=== PATIENT | male | born 1985 | race Caucasian/White ===

== ENCOUNTER 2025-02-11 08:15 | Outpatient (AMB) | payer OTHER, SELFPAY ==
--- NOTE | 2025-02-11 08:17 | MHC.PC.OV ---
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 Overweight: The patient reports a lifelong struggle with her weight. Over the past month, she has been dieting and has lost approximately 15 pounds. For exercise, she walks frequently at work and has recently purchased a treadmill with her sister to begin using. Chronic Left Shoulder Pain: The patient reports left shoulder pain starting after a fall nearly a year ago, around Brian of last year. She slipped and jerked her arm while holding onto a railing. This resulted in a limited range of motion, specifically with lifting the arm overhead. She describes the pain as a 4 out of 10 and notes it has improved over time; she is now able to bend her arm and scratch her back, actions she could not perform previously. She denies any associated tingling down the arm. She has intermittently used Aleve for the pain but has not undergone physical therapy. Dysmenorrhea and Menorrhagia: The patient reports a history of painful, long, and heavy menstrual periods. She takes an oral contraceptive pill for control to manage these symptoms. She denies ever being told she has anemia. Her menarche was at age 17. Health Maintenance: The patient's last Pap smear was performed when she was 19 years old. She has no family history of breast cancer. Her last visit with a physician for lab work was a very, very long time ago. Surgical History: - No prior surgical history reported. Medications: - Oral contraceptive pill ( Opel ): Taken for management of painful and heavy menstruation. Social History: - Tobacco Use: Patient is a former smoker, having quit 3 years ago. - She smoked for 10 years, consuming about half a pack of cigarettes per day, and sometimes more when drinking alcohol. - Substance Use: Denies use of marijuana or any hard drugs. - Sexual History: Not sexually active. - Employment: Works at the [employer] in [place]. - Housing and Social Support: Lives with her mother in [place], although her mother is currently away. - Her sister is also working on weight loss. - Exercise: Reports walking a lot at work and plans to start using a recently purchased treadmill. Family History: - Mother: Overweight. - Breast Cancer: Denies any immediate family history of breast cancer. Past Medical History - Dysmenorrhea and menorrhagia managed with an oral contraceptive pill. - Left shoulder injury secondary to a fall approximately one year prior. - Last Pap smear at age 19. - Has not seen a doctor or had lab work in a very long time. Health Maintenance - Cervical Cancer Screening: Patient is 39 and last had a Pap smear at age 19. - She was advised she is due for a Pap smear, which should be done every five years with HPV co-testing. - Breast Cancer Screening: Mammogram is not yet indicated as patient is 39 with no family history of breast cancer. - Sexually Transmitted Infection Screening: Patient declined screening for chlamydia, gonorrhea, and syphilis, as she is not sexually active. - Diet and Exercise: Patient is actively dieting and plans to increase exercise by using a new treadmill. [facility] Medical History (Updated 02/11/25 @ 08:55 by Armani Mckinnon MD) Morbidly obese Chronic left shoulder pain Family History Mother Hemochromatosis Acute arthritis Father Multiple sclerosis Social History (Reviewed 02/11/25 @ 08:25 by Mimi Patel [facility]) Housing: House Patient Tobacco Use Status: Former Tobacco user service: No Current occupational status: employed Cognitive needs: No Hearing needs: No Vision needs: Yes (rx glasses) Questionnaire PHQ-9 Over the last 2 weeks, how often have you been bothered by any of the following problems? 1. Little interest or pleasure in doing things: not at all 2. Feeling down, depressed, or hopeless: not at all 3. Trouble falling or staying asleep, or sleeping too much: not at all 4. Feeling tired or having little energy: not at all 5. Poor appetite or overeating: not at all 6. Feeling bad about yourself - or that you are a failure or have let yourself or your family down: several days 7. Trouble concentrating on things, such as reading the newspaper or watching television: not at all 8. Moving or speaking so slowly that other people could have noticed. Or the opposite - being so fidgety or restless that you have been moving around a lot more than usual: not at all 9. Thoughts that you would be better off or of hurting yourself in some way: not at all Total score: 1 Depression Screening Interpretation: Negative Depression Screening Done: Yes Source: Developed by Drs. Preet Mcclellan, Sonia Blanca, Jered Gray and colleagues, with an educational ilan from [employer]. Thrive Questionnaire Date Thrive assessed: 02/04/25 I am a: Patient What is your living situation today?: I have a steady place to live Within the past 12 months, did the food you bought not last and you didn't have the money to get more?: Never true Within the past 12 months, did you worry whether your food would run out before you got money to buy more?: Never true Do you have trouble paying for medicines?: No Do you have trouble getting transportation to medical appointments?: No Do you have trouble paying your heating and electricity bill?: No Do you have trouble taking care of your child, family member or friend?: No Do you have trouble with day-to-day activities such as bathing, preparing meals, shopping, managing finances, etc.?: No Are you currently unemployed and looking for a job?: No Are you interested in more education?: Yes Please select the resources that you would like help with: None Currently or been in a relationship where the following occur: No concerns reported THRIVE Score: 0 AUDIT C Alcohol Use Questionnaire (AUDIT-C) 1. How often do you have a drink containing alcohol?: Monthly or less 2. How many drinks containing alcohol do you have on a typical day when you are drinking?: 1 or 2 3. How often do you have six or more drinks on one occasion?: Less than monthly Total Score: 2 LAUREN-7 AMB Questionnaire LAUREN-7 Date LAUREN - 7 assessed: 10/29/25 Feeling nervous, anxious, or on edge: 1 = Several days Not being able to stop or control worryin = Not at all Worrying too much about different things: 1 = Several days Trouble relaxin = Not at all Being so restless that it is hard to sit still: 0 = Not at all Becoming easily annoyed or irritable: 0 = Not at all Feeling afraid as if something awful might happen: 0 = Not at all Total LAUREN-7 score (0-4 normal; 5-9 mild; 10-14 moderate; 15-21 severe): 2 Source: Developed by Drs. Preet Mcclellan, Sonia Blanca, Jered Gray and colleagues, with an educational ilan from [employer]. Review of Systems Narrative Review of Systems - Constitutional: Reports lifelong difficulty with weight and is seeking weight loss. - Musculoskeletal: Reports chronic left shoulder pain with limited range of motion for almost one year. - Reports swelling of the left foot and ankle. - Neurological: Denies tingling down the left arm. - Genitourinary: Reports painful, long, and heavy menses. - Gastrointestinal: Denies recent constipation. 10-point ROS reviewed and negative except as noted in HPI Physical exam (Primary Care) Vital Signs: Last Vital Signs Temp 98.3 F 02/11/25 08:23 Pulse 75 02/11/25 08:23 BP 138/86 02/11/25 08:23 Pulse Ox 100 02/11/25 08:23 Oxygen Delivery Method Room Air 02/11/25 08:23 BMI result Body Mass Index 44.8 Tobacco/Smoking Status: Tobacco use Status Tobacco use date assessed 02/11/25 02/11/25 08:19 Patient Tobacco Use Status Former Tobacco user 02/11/25 08:26 PHQ-9: PHQ-9 Score PHQ-9: Total score 1 02/11/25 08:23 Depression Screening Interpretation: Negative Thrive Assessment: Date of Thrive Assessment Date Thrive assessed 02/04/25 02/11/25 08:19 Currently or been in a relationship where the following occur: No concerns reported Narrative Physical Exam General: Well-appearing, in no acute distress. Vital signs: Blood pressure is a little high. HEENT: Normocephalic, atraumatic. PERRLA, EOMI. Conjunctiva clear, sclera anicteric. Oropharynx clear, mucous membranes moist. TMs intact bilaterally. Beautiful blue eyes with sunflower yellow around the iris. Neck: Supple, no lymphadenopathy, no thyromegaly, no JVD or carotid bruits. Cardiovascular: RRR, normal S1/S2, no murmurs, rubs, or gallops. Peripheral pulses 2+ and symmetric. No edema. Swelling noted in the left foot and ankle. Respiratory: Lungs clear to auscultation bilaterally, no wheezes, rales, or rhonchi. Normal effort. Abdomen: Soft, non-tender, non-distended. Normoactive bowel sounds. No hepatosplenomegaly, no masses. MSK: Limited range of motion in the left shoulder due to chronic pain. Pain rated 4/10. No joint swelling or deformity. Normal gait. Skin: Warm, dry, intact. No rashes or pallor. Presence of skin tags in the right armpit and darkening of the skin suggestive of insulin resistance. Neuro: Alert and oriented x3. Cranial nerves II-XII intact. Strength 5/5 throughout. Sensation intact. Reflexes 2+ symmetric. Normal coordination and gait. Psych: Appropriate mood and affect. Normal judgment and insight. Office Procedures Flu Questionnaire Does the patient have a severe egg allergy?: No Does the patient have severe life threatening allergies?: No Does the patient have a fever or illness today?: No Has the patient ever had Guillain-Madison Syndrome?: No Has the patient ever had any past reaction to a flu shot?: No Immunizations Fluarix [id number] (PF) 45 mcg (15 mcg x 3)/0.5 mL IM syringe Performing Provider: Armani Mckinnon MD Performing Location: [facility] [place] [facility] Administered by: Mimi Patel CMA on 02/11/25 08:47 Dose Route Admin Location Dispensed Lot Number Expiration Date [employer] 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 0.5 mL IM Left Deltoid 0.5 mL [id number] 10/13/25 03904-561-23 Attention Point VIS Given Date VIS Provided VIS Publication Date 02/11/25 Single Vaccine 24 Eligibility Eligibility Date Funding Source Not [facility] Eligible 02/11/25 Private Coding Level of Care Code New Pt Level 4 (12595) Diagnoses Chronic left shoulder pain M25.512; G89.29 Morbidly obese E66.01 Menorrhagia N92.0 Acanthosis nigricans L83 Insulin resistance E88.81 Assessment & Plan Assessment & Plan (1) Chronic left shoulder pain: Code(s): M25.512 - Pain in left shoulder; G89.29 - Other chronic pain Category: Medical (2) Morbidly obese: Code(s): E66.01 - Morbid (severe) obesity due to excess calories Category: Medical (3) Menorrhagia: Code(s): N92.0 - Excessive and frequent menstruation with regular cycle (4) Acanthosis nigricans: Code(s): L83 - Acanthosis nigricans (5) Insulin resistance: Code(s): E88.81 - Metabolic syndrome and other insulin resistance Plan Consent The plan for a comprehensive lab workup, referral to a medical weight management clinic, and referral to physical therapy was discussed with the patient. The patient understood the proposed plan and provided verbal consent, stating, Sounds good. Options for a Pap smear, including performing it in-office or referring to an OB-PRODUCT SAFETY COORDINATOR, were presented to the patient, who was advised to schedule based on her preference. Patient was informed and verbally consented to the use of an ambient scribe for clinic note documentation during this visit. Plan 1. Overweight - To establish a baseline and evaluate for underlying contributors to weight gain, a comprehensive lab panel will be ordered. - This includes a CBC, CMP, hemoglobin A1c, lipid panel, TSH, vitamin B12, folate, vitamin D, magnesium, and urine studies. - Infectious disease screening will be performed with HIV, hepatitis B, and hepatitis C tests. - A referral will be placed to the [facility]'s Medical Weight Management clinic for a comprehensive, multidisciplinary approach involving a relish maker and obesity specialist. - A follow-up visit is scheduled in two weeks to review lab results and continue the discussion on weight loss strategies. 2. Chronic Left Shoulder Pain - For pain management, the patient is advised to use ibuprofen as needed. - A referral will be placed for physical therapy for evaluation and treatment, to help with stretching and strengthening the muscles around the shoulder. 3. Preventative Care: Cervical Cancer Screening - The patient was informed that she is overdue for a Pap smear. - It was explained that screening is recommended every five years with HPV co-testing for her age group. - The patient was given the option to have the Pap smear performed in-office or to be referred to an OB-PRODUCT SAFETY COORDINATOR, based on her preference. - She was instructed to schedule a follow-up visit for the procedure. Discussion Notes I had a detailed discussion with the patient, [place], about her primary goal of weight loss. I explained the importance of obtaining baseline laboratory studies before considering any pharmacological interventions for weight loss, including checking for correctable causes like hypothyroidism or vitamin deficiencies. I recommended a comprehensive approach and discussed a referral to our medical weight management clinic, which she agreed to. We also addressed her chronic left shoulder pain, and I recommended as-needed ibuprofen and a referral to physical therapy to improve range of motion and strength, which she also found acceptable. Finally, I advised her that she is significantly overdue for a Pap smear and provided her with the options of having it done with me or with a referral to an OB-PRODUCT SAFETY COORDINATOR. I informed her that her blood pressure was slightly elevated but that we would monitor it, as it may be related to first-visit anxiety. I placed all necessary lab orders and referrals and instructed her to follow up in two weeks to review the results. Patient Instructions - Please go to the lab to have your blood drawn for the tests we discussed. - Our office will send a referral to the Medical Weight Management clinic, and they will contact you to schedule an appointment. - We will also send a referral for you to begin physical therapy for your left shoulder pain. - You may take an [id number] pain reliever like Ibuprofen as needed for shoulder pain. - Please call the office to schedule an appointment for a Pap smear, or let us know if you would prefer a referral to a professional development manager. - Schedule a follow-up appointment with me in two weeks to go over your lab results. Medical Decision Making The patient is a 39-year-old female new to the practice, presenting for weight management and chronic left shoulder pain. Given her long history of difficulty with weight and her interest in treatment, a thorough workup is warranted to rule out underlying metabolic or endocrine causes such as hypothyroidism or vitamin deficiencies before considering pharmacotherapy. Physical exam findings of acanthosis nigricans and skin tags are suggestive of insulin resistance, further justifying a comprehensive metabolic panel and hemoglobin A1c. A referral to a multidisciplinary medical weight management program is the most appropriate next step to provide structured support including nutrition and specialist consultation. Her chronic left shoulder pain, present for nearly a year post-injury with persistent limited range of motion, warrants conservative management initially with physical therapy to restore function; imaging may be considered if she does not improve. The patient is significantly overdue for cervical cancer screening, and providing her with options for completing the Pap smear empowers her to engage in her health maintenance. The mildly elevated blood pressure will be re-evaluated at the next visit to determine if it is a persistent issue or a transient finding. Total time spent caring for the patient today was 30 minutes. This includes time spent before the visit reviewing the chart, time spent documenting, and time spent reviewing laboratory results, diagnostic imaging, medications, performing a medically necessary evaluation, counseling on diagnoses, care coordination. Orders: Orders PT Evaluation and Treatment Today G89.29 - Other chronic pain, M25.512 - Pain in left shoulder, Z13.9 - Encounter for screening, unspecified Hemoglobin A1c Today Z13.9 - Encounter for screening, unspecified Hepatitis B Surface Antigen Today Z13.9 - Encounter for screening, unspecified Hepatitis C Antibody Today Z13.9 - Encounter for screening, unspecified Magnesium Today Z13.9 - Encounter for screening, unspecified TSH reflex Free T4 Today Z13.9 - Encounter for screening, unspecified Vitamin B12 and Folate Today Z13.9 - Encounter for screening, unspecified Vitamin D 1,25 dihydroxy Today Z13.9 - Encounter for screening, unspecified Influenza [id number] Immunization Today Z23 - Encounter for immunization Complete Blood Count Auto Diff Today Z13.9 - Encounter for screening, unspecified Comprehensive Met. Panel Today Z13.9 - Encounter for screening, unspecified Hepatitis B Surface Antibody Today Z13.9 - Encounter for screening, unspecified HIV Ab/Ag Today Z13.9 - Encounter for screening, unspecified Lipid Panel Today Z13.9 - Encounter for screening, unspecified UA CC w/rflx Micro + Cult Today Z13.9 - Encounter for screening, unspecified Referrals Medical Weight Management Referral E66.01 - Morbid (severe) obesity due to excess calories
[2025-02-11 08:23] VITALS: BP 138/86; PULSE 75; TEMP 36.8; O2SAT 100; BMI 44.8
== END 2025-02-11 09:03 | disposition home or self-care (01) ==
LOC: HO.HMCFMS 08:16
PROVIDERS: PCP Student in an Organized Health Care Education/Training Program; Visit Provider Student in an Organized Health Care Education/Training Program
DX: M25.512 Pain in left shoulder (principal); G89.29 Other chronic pain; E66.01 Morbid (severe) obesity due to excess calories; N92.0 Excessive and frequent menstruation with regular cycle; L83 Acanthosis nigricans; E88.810 Metabolic syndrome; Z23 Encounter for immunization

== ENCOUNTER 2025-02-11 08:15 | Outpatient (REF) | payer OTHER, SELFPAY ==
--- OUTSIDE RECORDS SUMMARY | 2025-02-11 10:26 | XMS_ITS | Encounter Summary ---
Author Organization [employer] Address [address] [place] [address] Care Team Providers Care Livestock Breeder Name Role Phone Unavailable Primary Care Provider Unavailabl e Encounter Details Date Type Department Care Team (Latest Contact Info) Description 12/21/2021 Abstract [facility] Dental, Provider, DDS Social History Tobacco Use Types Packs/Day Years Used Date Smoking Tobacco: Never Assessed Comments Unknown Sex and Gender Information Value Date Recorded Sex Assigned at Female 05/05/2022 3:45 PM EST Legal Sex Female 5:34 PM EDT Gender Identity Female 05/05/2022 3:45 PM EST Sexual Orientation Straight 05/25/2022 9: 09 AM EST documented as of this encounter Plan of Treatment Not on file documented as of this encounter Visit Diagnoses Not on filedocumented in this encounter
--- OUTSIDE RECORDS SUMMARY | 2025-02-11 10:26 | XMS_ITS ---
Author Name [facility] Organization Unknown Care Team Organization Name Specialty Phone Email Start Date End Da te [facility] Shani [facility] 02/21/20222023
--- OUTSIDE RECORDS SUMMARY | 2025-02-11 10:26 | XMS_ITS | Encounter Summary ---
Author Organization [employer] Address [address] [place] [address] [address], [place] [address] Care Team Providers Care Frozen Yogurt Maker Name Role Phone Unavailable Primary Care Provider Unavailabl e Reason for Visit * Reason Onset Date Comments Dental Pain 04/05/2022 See above. Encounter Details Date Type Department Care Team (Late st Contact Info) Description 04/05/2022 Telephone [facility] [address] [place] [address] Gonzalo Oneal DMD Dental Pain (See above.) Social History Tobacco Use Types Packs/Day Years [...]
--- OUTSIDE RECORDS SUMMARY | 2025-02-11 10:26 | XMS_ITS | Clinical Summary ---
Author Organization [employer] Address [address] [place] [address] [address] [place] [address] Care Team Providers Care Blank Driller Name Role Phone Unavailable Primary Care Provider Unavailabl e Social History Tobacco Use Types Packs/Day Years Used Date Smoking Tobacco: Never Assessed Comments Unknown Sex and Gender Information Value Date Recorded Sex Assigned at Female 05/05/2022 3:45 PM EST Legal Sex Female 5:34 PM EDT Gender Identity Female 05/05/2022 3:45 PM EST Sexual Orientation Straight 05/25/2022 9: 09 AM EST Last Filed Vital Signs Vital Sign Reading Time Taken Comments Blood Pressure - - Pulse - - Temperature 36.3 C (97.3 F) 05/30/2022 9:00 AM EST Respiratory Rate - - Oxygen Saturation - - Inhaled Oxygen Concentration - - Weight - - Height - - Body Mass Index - - Plan of Treatment Health Maintenance Due Date Last Done Comments Depression Screening 1986 HIV Screening 1986 SDOH Screening 1986 Disability Screening 1986 Alcohol/Substance Use Screening 1998 Tobacco Screening 1998 Family Planning (PISQ) 2001 HPV Vaccines (1 - 3-dose series) 2001 Hepatitis C Screening 2004 DTaP/Tdap/Td Vaccines (1 - Tdap) 2005 Hepatitis B Vaccines (1 of 3 - 19+ 3-dose series) 2005 Pap Smear 11/25/2007 Cervical Cancer Screening 2016 HPV/Cotest 2016 Dental Oral Exam 08/27/2017 02/26/2017, , 01/28/2016, Additional history exists Dental Prophylaxis 07/05/2022 01/04/2022, 1 04/28/2016, 08/01/2016, Additional history exists Dental X-Ray: Bitewings 12/22/2022 12/22/19 22, 02/26/2017, 01/28/2016, Additional history exists COVID-19 Vaccine (2024- season) 2024 04/14/2021, 09/20/2020, 08/23/2020 Influenza Vaccine (#1) 2024 Dental X-Ray: Full Mouth 12/22/2024 12/21/2021, 01/14 Zoster Vaccines (1 of 2) 2036 RSV Patients and Patients Aged 60 years or older (1 - 1-dose 75+ series) 2061 HIB Vaccines Aged Out No longer eligi ble based on patient's age to complete this topic Hepatitis A Vaccines Aged Out No long er eligible based on patient's age to complete this topic IPV Vaccines Aged Out No longer eligi ble based on patient's age to complete this topic Meningococcal B Vaccine Aged Out No l onger eligible based on patient's age to complete this topic Meningococcal Vaccine Aged Out No nisha polina eligible based on patient's age to complete this topic Pneumococcal Vaccine: Pediatrics (0 to 5 Years) and At-Risk Patients (6 to 49) Years Aged Out No longer eligible based on patient's age to complete this topic RSV under 20 months Aged Out No longe r eligible based on patient's age to complete this topic Rotavirus Vaccines Aged Out No longer eligible based on patient's age to complete this topic Procedures Procedure Name Priority Date/Time Associated Diagnosis Comments PROPHYLAXIS - ADULT Routine 01/04/2022 1 2:00 AM EDT INTRAORAL - COMPLETE SERIES OF RADIOGRAPHIC IMAGES Routine 12/21/2021 12:00 AM EDT PERIODIC ORAL EVALUATION - ESTABLISHED PATIENT Routine 02/26/2017 12:00 AM EST from Last 3 Months or Most Recently Relevant to Health Maintenance Insurance DENTAL - [facility] [address] [place] [id number]
--- OUTSIDE RECORDS SUMMARY | 2025-02-11 10:26 | XMS_ITS | Encounter Summary ---
Author Organization [employer] Address [address] [place] [address] Care Team Providers Care Electronic Musical Instrument Repairer Name Role Phone Unavailable Primary Care Provider Unavailabl e Encounter Details Date Type Department Care Team (Latest Contact Info) Description 01/04/2022 Abstract [facility] Dental, Provider, DDS Social [...]
[2025-02-11 13:16] LABS: Appearance Urine Clear; Glucose Urine UA Negative (Negative); PH 6.5 (5.0-9.0); Specific Gravity - Urine 1.025 (1.005-1.025); UMIC TRIGGER UACC YES
[2025-02-11 13:31] LABS: MANUAL DIFF FLAG NO
[2025-02-11 13:35] LABS: UACC Culture Trigger YES
[2025-02-11 13:43] LABS: Hematocrit 43.2 % (42.0-52.0); Hemoglobin 14.5 g/dl (14.0-18.0); Imm Gran Abs Auto 0.07 X10*3/uL (0.00-0.03); Imm Gran Pct Auto 0.7 % (0.0-0.4); Lymphocytes Absolute Auto 1.8 X10*3/uL (1.2-4.9); Mean Corpuscular HGB Conc 33.6 g/dl (31.0-36.0); Mean Corpuscular Hemoglobin 32.2 pg (27.0-33.0); Mean Corpuscular Volume 95.8 fL (80.0-98.0); NRBC Abs Auto 0.000 X10*3/uL (0.0-0.012); NRBC Pct Auto 0.0 /100WBC (0.0-0.2); Platelet Count 173 X10*3/uL (160-400); Red Blood Count 4.51 X10*6/uL (4.60-5.80); White Blood Count 9.7 X10*3/uL (4.8-10.8)
[2025-02-11 14:09] LABS: Alanine Aminotransferase 32 U/L (0-40); Albumin Level 4.5 g/dL (3.5-5.0); Alkaline Phosphatase 88 U/L (39-117); Anion Gap 12 (12-20); Aspartate Amino Transferase 25 U/L (5-37); Blood Urea Nitrogen 11 mg/dL (9-16); Calcium 9.5 mg/dL (8.4-10.2); Carbon Dioxide 24 mmol/L (22-29); Chloride 109 mmol/L (96-108); Cholesterol 156 mg/dL (<200); Estimated Glomerular Filt Rate > 60; HDL Cholesterol 37 mg/dL (>40); Magnesium 2.3 mg/dL (1.6-2.6); Potassium 4.1 mmol/L (3.3-5.1); Sodium 141 mmol/L (135-145); Total Protein 7.8 g/dL (6.5-8.0); Triglycerides 101 mg/dL (<150)
[2025-02-11 14:33] LABS: Folate 9.4 ng/mL (> or = 4.0); Vitamin B12 515 pg/mL (200-900)
[2025-02-12 04:37] LABS: HBS Num1 219.19 mIU/mL (0-7.99); HBsAGNum1 0.37 S/CO (0.00-0.99); HIV Num 1 0.08 S/CO (0.00-0.99); Hepatitis B Surface Antigen Negative (Negative); ~HepC Num1 0.09 S/CO (0.00-0.79); ~Hepatitis B Surface Antibody REACTIVE (Nonreactive); ~Hepatitis C Antibody Nonreactive (Nonreactive)
[2025-02-14 22:24] LABS: VITAMIN D (1,25 OH) D3 77 pg/mL; Vit D (1,25-Dihydroxy) Total 77 pg/mL (18-72); Vitamin D (1,25 OH) D2 <8 pg/mL
== END 2025-02-11 08:16 | disposition home or self-care (01) ==
LOC: HO.HKASLDS 08:15
PROVIDERS: PCP Student in an Organized Health Care Education/Training Program; Visit Provider Student in an Organized Health Care Education/Training Program
DX: Z13.9 Encounter for screening, unspecified (principal); Z23 Encounter for immunization; M25.512 Pain in left shoulder; E66.01 Morbid (severe) obesity due to excess calories; L83 Acanthosis nigricans; E88.819 Insulin resistance, unspecified; N92.0 Excessive and frequent menstruation with regular cycle; Z68.41 Body mass index [BMI] 40.0-44.9, adult
CPT/HCPCS: 36415; 80053; 80061; 81001; 82607; 82652; 82746; 83036; 83735; 84443; 85025; 86706; 86803; 87086; 87340; 87389; 90471; 90656; 96127

== ENCOUNTER 2025-03-16 08:20 | Outpatient (AMB) | payer OTHER, SELFPAY ==
[2025-03-16 08:26] VITALS: BP 118/86; PULSE 57; TEMP 36.9; O2SAT 99; BMI 43.9
--- NOTE | 2025-03-16 08:26 | MHC.PC.OV ---
Vital Signs 03/16/25 08:26 Height 5 ft 10.12 in Weight 307 lb 5 oz BMI 43.9 BP 118/86 Blood Pressure Location Rt brachial Position Sitting Pulse 57 Pulse Source Pulse Oximeter Temp 98.5 F Temp Source Oral Pulse Oximetry (%) 99 Oxygen Delivery Method Room Air Intake Visit Reasons: 2 wk f/u- lab review, resched Accompanied by: Self / Same As Patient Allergies No Known Allergies Allergy (Verified 03/16/25 08:26) Medication List - Last Reconciled 03/16/25 by Armani Mckinnon MD norgestrel (Opill) 1 tab PO DAILY Tobacco use date assessed: 03/16/25 Dental Screening Dental Screen Date: 03/16/25 Did you have a dental visit in the last 12 months?: No HPI HPI Comments History of Present Illness Details Consent The risks, benefits, and alternatives for a Pap smear were discussed with the patient. Options included having the procedure done in-house or receiving a referral to an COACH MECHANIC. The patient elected to have the Pap smear performed in-house for convenience and provided verbal consent to proceed with scheduling the procedure. Patient was informed and verbally consented to the use of an ambient scribe for clinic note documentation during this visit. History of Present Illness The patient is a 39 year old individual presenting for review of lab results. Low HDL cholesterol: Recent lab results show a high-density lipoprotein (HDL) level of 37, which is below the target of greater than 40. The patient's total cholesterol and low-density lipoprotein (LDL) levels are within normal limits. Elevated Vitamin D: The patient's vitamin D level is noted to be slightly elevated. The patient denies taking any vitamin D supplements but reports consuming energy drinks that may contain vitamin D. Weight Management: A referral was previously made to a weight loss clinic, which has contacted the patient. The patient has not yet scheduled an appointment due to work commitments. The patient was also referred to physical therapy but has not been contacted by them. Health Maintenance: Cervical Cancer Screening: The patient requires a Pap smear for cervical cancer screening, as the last one was performed 20 years ago, at age 19. Surgical History: - No surgical history was discussed. Medications: - The patient denies taking vitamin D supplements. Social History: - Diet: The patient reports consuming energy drinks, which may contain vitamin D. - The patient was advised to reduce intake of foods like cheese to help manage cholesterol. - Exercise: The patient was advised to exercise to help raise HDL cholesterol. - Employment: The patient reports being busy at work, which has been a barrier to scheduling follow-up appointments. Family History: - No family history was discussed. Diagnostic Results: - Lab Results: - HDL cholesterol: 37 (low, target >40) - Total cholesterol: Normal - LDL cholesterol: Normal - Vitamin D: Slightly elevated Review of Systems - General: Denies any acute complaints. 10-point ROS reviewed and negative except as noted in HPI Past Medical History - The patient's last Pap smear was at age 19. Health Maintenance - The patient will follow up with the weight loss clinic to schedule an appointment. - A phone number for physical therapy will be provided for the patient to self-schedule an appointment. - The patient will schedule an in-house Pap smear for cervical cancer screening, to be repeated in three years if results are normal. 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 1. Little interest or pleasure in doing things: not at all 2. Feeling down, depressed, or hopeless: not at all 3. Trouble falling or staying asleep, or sleeping too much: not at all 4. Feeling tired or having little energy: not at all 5. Poor appetite or overeating: not at all 6. Feeling bad about yourself - or that you are a failure or have let yourself or your family down: several days 7. Trouble concentrating on things, such as reading the newspaper or watching television: not at all 8. Moving or speaking so slowly that other people could have noticed. Or the opposite - being so fidgety or restless that you have been moving around a lot more than usual: not at all 9. Thoughts that you would be better off or of hurting yourself in some way: not at all Total score: 1 Depression Screening Interpretation: Negative Depression Screening Done: Yes Source: Developed by Drs. Preet Mcclellan, Sonia Blanca, Jered Gray and colleagues, with an educational ilan from [employer]. Thrive Questionnaire Date Thrive assessed: 03/16/25 I am a: Patient What is your living situation today?: I have a steady place to live Within the past 12 months, did the food you bought not last and you didn't have the money to get more?: Never true Within the past 12 months, did you worry whether your food would run out before you got money to buy more?: Never true Do you have trouble paying for medicines?: No Do you have trouble getting transportation to medical appointments?: No Do you have trouble paying your heating and electricity bill?: No Do you have trouble taking care of your child, family member or friend?: No Do you have trouble with day-to-day activities such as bathing, preparing meals, shopping, managing finances, etc.?: No Are you currently unemployed and looking for a job?: No Are you interested in more education?: Yes Please select the resources that you would like help with: None Currently or been in a relationship where the following occur: No concerns reported THRIVE Score: 0 AUDIT C Alcohol Use Questionnaire (AUDIT-C) 1. How often do you have a drink containing alcohol?: Monthly or less 2. How many drinks containing alcohol do you have on a typical day when you are drinking?: 1 or 2 3. How often do you have six or more drinks on one occasion?: Less than monthly Total Score: 2 LAUREN-7 AMB Questionnaire LAUREN-7 Date LAUREN - 7 assessed: 03/16/25 Feeling nervous, anxious, or on edge: 1 = Several days Not being able to stop or control worryin = Not at all Worrying too much about different things: 1 = Several days Trouble relaxin = Not at all Being so restless that it is hard to sit still: 0 = Not at all Becoming easily annoyed or irritable: 0 = Not at all Feeling afraid as if something awful might happen: 0 = Not at all Total LAUREN-7 score (0-4 normal; 5-9 mild; 10-14 moderate; 15-21 severe): 2 Source: Developed by Drs. Preet Mcclellan, Sonia Blanca, Jered Gray and colleagues, with an educational ilan from [employer]. Review of Systems Narrative Review of Systems - General: Denies any acute complaints. 10-point ROS reviewed and negative except as noted in HPI Physical exam (Primary Care) Vital Signs: Last Vital Signs Temp 98.5 F 03/16/25 08:26 Pulse 57 03/16/25 08:26 Pulse Ox 99 03/16/25 08:26 Oxygen Delivery Method Room Air 03/16/25 08:26 BMI result Body Mass Index 43.9 Tobacco/Smoking Status: Tobacco use Status Tobacco use date assessed 03/16/25 03/16/25 08:27 Patient Tobacco Use Status Former Tobacco user 03/16/25 08:27 e-Cigarette/Vaping Use Never Used 03/16/25 08:45 PHQ-9: PHQ-9 Score PHQ-9: Total score 1 03/16/25 08:41 Depression Screening Interpretation: Negative Thrive Assessment: Date of Thrive Assessment Date Thrive assessed 03/16/25 03/16/25 08:27 Currently or been in a relationship where the following occur: No concerns reported Narrative Physical Exam General: Well-appearing, in no acute distress. Vital signs: Within normal limits. HEENT: Normocephalic, atraumatic. PERRLA, EOMI. Conjunctiva clear, sclera anicteric. Oropharynx clear, mucous membranes moist. TMs intact bilaterally. Neck: Supple, no lymphadenopathy, no thyromegaly, no JVD or carotid bruits. Cardiovascular: RRR, normal S1/S2, no murmurs, rubs, or gallops. Peripheral pulses 2+ and symmetric. No edema. Respiratory: Lungs clear to auscultation bilaterally, no wheezes, rales, or rhonchi. Normal effort. Abdomen: Soft, non-tender, non-distended. Normoactive bowel sounds. No hepatosplenomegaly, no masses. MSK: Full range of motion, no joint swelling or deformity. Normal gait. Skin: Warm, dry, intact. No rashes, lesions, or pallor. Neuro: Alert and oriented x3. Cranial nerves II-XII intact. Strength 5/5 throughout. Sensation intact. Reflexes 2+ symmetric. Normal coordination and gait. Psych: Appropriate mood and affect. Normal judgment and insight. Coding Level of Care Code Est Pt Level 3 (60041) Diagnoses Low HDL (under 40) E78.6 Hypervitaminosis D E67.3 Morbidly obese E66.01 Chronic left shoulder pain M25.512; G89.29 Assessment & Plan Assessment & Plan (1) Low HDL (under 40): Code(s): E78.6 - Lipoprotein deficiency Category: Medical (2) Hypervitaminosis D: Code(s): E67.3 - Hypervitaminosis D Category: Medical (3) Morbidly obese: Code(s): E66.01 - Morbid (severe) obesity due to excess calories Category: Medical (4) Chronic left shoulder pain: Code(s): M25.512 - Pain in left shoulder; G89.29 - Other chronic pain Category: Medical Plan Consent The risks, benefits, and alternatives for a Pap smear were discussed with the patient. Options included having the procedure done in-house or receiving a referral to an COACH MECHANIC. The patient elected to have the Pap smear performed in-house for convenience and provided verbal consent to proceed with scheduling the procedure. Patient was informed and verbally consented to the use of an ambient scribe for clinic note documentation during this visit. Plan 1. Low Hdl Cholesterol - Will travel counselor [employer] on lifestyle modifications, including diet and exercise, to raise HDL levels. 2. Elevated Vitamin D - Advised the patient to discontinue any sources of vitamin D, as levels are slightly elevated. Discussion Notes I reviewed the patient's recent lab results, which were all within normal limits except for a low HDL of 37 and a slightly elevated vitamin D level. I educated the patient that HDL is the good cholesterol and can be increased through diet and exercise. I also advised the patient to hold off on vitamin D intake. We discussed outstanding referrals for weight loss and physical therapy. I instructed the patient to call the weight loss clinic to schedule and to obtain the phone number for physical therapy at [facility] to schedule that appointment as well. I addressed the need for cervical cancer screening, as the patient's last Pap smear was 20 years ago. I offered the patient the choice of an in-house procedure or a referral to an COACH MECHANIC, and the patient opted for the in-house Pap smear for convenience. I advised the patient to schedule the appointment with the front office assistant. Patient Instructions - Your good cholesterol (HDL) is a little low. - Improve this by exercising and making dietary changes, such as eating less cheese. - Your vitamin D is a little high. - Please avoid taking any vitamin D for now. - Please call the weight loss clinic to make an appointment. - Ask the front office assistant for the phone number for physical therapy and call to schedule an appointment. - Schedule an appointment at this office for a Pap smear. Medical Decision Making The patient is a 39-year-old individual presenting for a review of lab results. The lipid panel revealed an isolated low HDL of 37, while other cholesterol markers were normal. The primary intervention for this is lifestyle modification, so I counseled the patient on improving diet and incorporating exercise. The patient's vitamin D level was slightly elevated, with a potential dietary source from energy drinks. As the patient does not take supplements, I advised holding off on vitamin D intake. Health maintenance was a sampson part of the visit. I reinforced the importance of following up with referrals to the weight loss clinic and physical therapy. The patient is significantly overdue for cervical cancer screening, having not had a Pap smear for 20 years. I discussed the options, and for patient convenience, we agreed on an in-house Pap smear, which the patient will schedule. Total Time Statement 20 min Total time spent caring for the patient today includes pre-visit chart review, documentation, review of laboratory and diagnostic imaging results, medication reconciliation, medically necessary evaluation, counseling on diagnoses, care coordination, ordering appropriate tests and medications, review of tests performed by other providers, reporting test results to the patient, and communication with other healthcare providers.
--- OUTSIDE RECORDS SUMMARY | 2025-03-16 08:35 | XMS_ITS | Encounter Summary ---
Author Organization [employer] Address [address] [place] [address] Care Team Providers Care Employment Officer Name Role Phone Unavailable Primary Care Provider [...]
--- OUTSIDE RECORDS SUMMARY | 2025-03-16 08:35 | XMS_ITS | Encounter Summary ---
Author Organization [employer] Address [address] [place] [address] Care Team Providers Care Book Author Name Role Phone Unavailable Primary Care Provider [...]
--- OUTSIDE RECORDS SUMMARY | 2025-03-16 08:35 | XMS_ITS | Clinical Summary ---
Author Organization [employer] Address [address] [place] [address] [address] [place] [address] Care Team Providers Care Automotive Metalsmith Name Role Phone Unavailable Primary Care Provider [...] Insurance DENTAL - [address] [place] [id number]
--- OUTSIDE RECORDS SUMMARY | 2025-03-16 08:36 | XMS_ITS | Encounter Summary ---
Author Organization [employer] Address [address] [place] [address] [address], [place] [address] Care Team Providers Care Oral Surgery Technician Name Role Phone Unavailable Primary Care Provider Unavailabl e Reason for Visit * Reason Onset Date Comments Dental Pain 04/05/2022 See above. Encounter Details Date Type Department Care Team (Late st Contact Info) Description 04/05/2022 Telephone [facility] [address] [place] [address] Gonzalo Oneal DMD Dental Pain (See above.) [...]
== END 2025-03-16 08:52 | disposition home or self-care (01) ==
LOC: HO.HMCFMS 08:21
PROVIDERS: PCP Student in an Organized Health Care Education/Training Program; Visit Provider Student in an Organized Health Care Education/Training Program
DX: E78.6 Lipoprotein deficiency (principal); E67.3 Hypervitaminosis D; E66.01 Morbid (severe) obesity due to excess calories; M25.512 Pain in left shoulder; G89.29 Other chronic pain

== ENCOUNTER → 2025-03-16 08:20 | Outpatient (BNVA) | payer OTHER, SELFPAY | PROVIDERS: PCP Student in an Organized Health Care Education/Training Program; Visit Provider Student in an Organized Health Care Education/Training Program | DX: E78.6 Lipoprotein deficiency (principal); E67.3 Hypervitaminosis D; E66.01 Morbid (severe) obesity due to excess calories; Z68.41 Body mass index [BMI] 40.0-44.9, adult; G89.29 Other chronic pain; M25.512 Pain in left shoulder; Z13.31 Encounter for screening for depression; Z13.39 Encounter for screening examination for other mental health and behavioral disorders | CPT/HCPCS: 96127; 99212 ==